=== PATIENT | female | born 1940 | race African-American/Black ===

== ENCOUNTER 2019-12-30 13:29 | Emergency (ER) | payer MEDICARE, OTHER ==
[~2019-12-30] VITALS: Ht 152.4 cm; Wt 54.5 kg
--- NOTE | 2019-12-30 14:49 | RAD ---
CT head without contrast: Reason for examination: Fell with head and neck pain. Axial images were obtained through the brain. No contrast was administered. Ventricular systems are dilated but symmetric and consistent with patient's advanced age and generalized cerebral atrophy. No midline shift is seen. There are patchy deep white matter microvascular ischemic changes in the frontal lobes. No acute hemorrhage, infarct, mass or edema is seen. There does appear to be some minimal basal ganglia calcification present. No abnormalities of seen at the orbits. The paranasal sinuses and mastoid air cells are clear. No acute skull abnormality is seen. IMPRESSION: Generalized cerebral atrophy with some microvascular ischemic changes. No acute intracranial abnormality evident. CT cervical spine without contrast: Helical images were obtained through the cervical spine from skull base through the thoracic apices with no contrast administered. Reconstruction was performed in sagittal and coronal planes. The C1 ring is intact. The odontoid process is intact and normally centered between the lateral masses of C1. Cervical vertebral bodies show a mild grade 1 anterolisthesis of C5 on C6 and a mild grade 1 retrolisthesis of C6 on C7. The remaining vertebral bodies are normally aligned. No acute fracture is seen. Posterior elements are intact. Note is made of some moderate degenerative changes between C5 and C7. Remaining intervertebral discs however fairly well-maintained. Prevertebral soft tissues are normal. IMPRESSION: Degenerative spondylosis especially at the C5-6 and C6-7 levels. No acute abnormality evident in the cervical spine. Exposure: One or more of the following individualized dose reduction techniques were utilized for this examination: 1. Automated exposure control 2. Adjustment of the mA and/or kV according to patient size 3. Use of iterative reconstruction technique. Electronically signed by: Maria Ines Pina MD (12/30/2019 2:46 PM) SOPHY
--- NOTE | 2019-12-30 15:01 | PHYS DOC ---
Past Medical History Past Medical History: CVA, Dementia, Hypertension, Seizure, Other Additional Past Medical Histor: COVID-19,ALZHEIMER'S,DYSPHAGIA,ENCEPHALOPATHY Past Surgical History: Other Additional Past Surgical Histo: UNKNOWN Smoking Status: Never Smoker Alcohol Use: None General Adult EDM: Chief Complaint: MECHANICAL FALL HPI: HPI: Patient is a 79 year old female who was brought here by EMS from the care home after she fell. It was reported that patient was walking and tripped fell down and hit her head on the ground. No loss of consciousness. EMS report that patient was ambulate at the scene without any problem. Patient denies any pelvic pain, no hip pain, no extremity pain. Patient complained of headache, neck pain, low back pain. Patient denies any upper back pain. Patient is not on any blood thinner. Review of Systems: Review of Systems: Constitutional: Denies fever or chills. [] Eyes: Denies change in visual acuity. [] HENT: Denies nasal congestion or sore throat. [] Respiratory: Denies cough or shortness of breath. [] Cardiovascular: Denies chest pain or edema. [] GI: Denies abdominal pain, nausea, vomiting, bloody stools or diarrhea. [] : Denies dysuria. [] Musculoskeletal: Positive for neck pain, low back pain Integument: Denies rash. [] Neurologic: Positive headache, no focal weakness or numbness. Endocrine: Denies polyuria or polydipsia. [] Lymphatic: Denies swollen glands. [] Psychiatric: Denies depression or anxiety. [] Heart Score: Risk Factors: Risk Factors: DM, Current or recent (<one month) smoker, HTN, HLP, family history of CAD, obesity. Risk Scores: Score 0 - 3: 2.5% MACE over next 6 weeks - Discharge Home Score 4 - 6: 20.3% MACE over next 6 weeks - Admit for Clinical Observation Score 7 - 10: 72.7% MACE over next 6 weeks - Early Invasive Strategies Allergies: Allergies: Allergies Coded Allergies Type Severity Reaction Last Updated Verified No Known Drug Allergies 12/30/19 No Physical Exam: PE: Constitutional: Well developed, well nourished, no acute distress, non-toxic appearance. [] HENT: Normocephalic, left temporal area contusion, there is no open wound, bilateral external ears normal, oropharynx moist, no oral exudates, nose normal. [] Eyes: PERRLA, EOMI, conjunctiva normal, no discharge. [] Neck: Normal range of motion, no tenderness, supple, no stridor. [] Cardiovascular:Heart rate regular rhythm, no murmur [] Lungs & Thorax: Bilateral breath sounds clear to auscultation [] Abdomen: Bowel sounds normal, soft, no tenderness, no masses, no pulsatile masses. [] Skin: Warm, dry, no erythema, no rash. [] Back: Thoracic kyphosis, no tender to palpation in thoracic area, paraspinal muscle tenderness to palpation in the lumbar area Extremities: No tenderness, no cyanosis, no clubbing, ROM intact, no edema. [] No pelvic or hip tenderness to palpation Neurologic: Alert and oriented X 3, normal motor function, normal sensory function, no focal deficits noted. [] Psychologic: Affect normal, judgement normal, mood normal. [] Current Patient Data: Vital Signs: Vital Signs Date Time Temp Pulse Resp B/P (MAP) Pulse Ox O2 Delivery O2 Flow Rate FiO2 12/30/19 13:29 97.4 82 20 110/73 (85) 95 Room Air 97.4 EKG: EKG: [] Radiology/Procedures: Radiology/Procedures: [facility] [address] [facility] [place] [address] IMAGING REPORT Signed PATIENT: KIN VALENCIA ACCOUNT: [id number] : 1940 LOCATION: ER AGE: 79 SEX: F EXAM STATUS: REG ER ORD. PHYSICIAN: ESDRAS ALVAREZ DO REASON: fell, head and neck pain PROCEDURE: CT HEAD AND CERVICAL SPINE WO CT head without contrast: Reason for examination: Fell with head and neck pain. Axial images were obtained through the brain. No contrast was administered. Ventricular systems are dilated but symmetric and consistent with patient's advanced age and generalized cerebral atrophy. No midline shift is seen. There are patchy deep white matter microvascular ischemic changes in the frontal lobes. No acute hemorrhage, infarct, mass or edema is seen. There does appear to be some minimal basal ganglia calcification present. No abnormalities of seen at the orbits. The paranasal sinuses and mastoid air cells are clear. No acute skull abnormality is seen. IMPRESSION: Generalized cerebral atrophy with some microvascular ischemic changes. No acute intracranial abnormality evident. CT cervical spine without contrast: Helical images were obtained through the cervical spine from skull base through the thoracic apices with no contrast administered. Reconstruction was performed in sagittal and coronal planes. The C1 ring is intact. The odontoid process is intact and normally centered between the lateral masses of C1. Cervical vertebral bodies show a mild grade 1 anterolisthesis of C5 on C6 and a mild grade 1 retrolisthesis of C6 on C7. The remaining vertebral bodies are normally aligned. No acute fracture is seen. Posterior elements are intact. Note is made of some moderate degenerative changes between C5 and C7. Remaining intervertebral discs however fairly well-maintained. Prevertebral soft tissues are normal. IMPRESSION: Degenerative spondylosis especially at the C5-6 and C6-7 levels. No acute abnormality evident in the cervical spine. Exposure: One or more of the following individualized dose reduction techniques were utilized for this examination: 1. Automated exposure control 2. Adjustment of the mA and/or kV according to patient size 3. Use of iterative reconstruction technique. Electronically signed by: Maria Ines David MD (12/30/2019 2:46 PM) [facility] DICTATED and SIGNED BY: MARIA INES DAVID MD DATE: 12/30/[address] [facility] [address] [place] [address] IMAGING REPORT Signed PATIENT: KIN VALENCIA ACCOUNT: [id number] : 1940 LOCATION: ER AGE: 79 SEX: F EXAM STATUS: REG ER ORD. PHYSICIAN: ESDRAS ALVAREZ DO REASON: LOWER BACK PAIN, FELL PROCEDURE: LUMBAR SPINE 2-3V Two-view lumbar spine dated 12/30/2019. No comparison available. Clinical data indication: Low back pain after fall. FINDINGS: 2 views lumbar spine show grade 1 anterolisthesis of L4 on L5. Sagittal alignment is otherwise anatomic. There are moderate compression deformities of T9 and T11 status post vertebroplasty. Vertebral body heights are otherwise maintained. Mild endplate hypertrophic changes throughout. Moderate arthrosis lower lumbar apophyseal joints. IMPRESSION: 1. No acute radiographic abnormality. Remote compression deformities of T9 and T11 status post vertebroplasty. 2. Mild multilevel spondylosis with grade 1 anterolisthesis of L4 on L5. Electronically signed by: Scotty Poole MD (12/30/2019 3:44 PM) [id number] DICTATED and SIGNED BY: SCOTTY POOLE MD DATE: 12/30/19 1544 Course & Med Decision Making: Course & Med Decision Making Pertinent Labs and Imaging studies reviewed. (See chart for details) [] Kayla Disclaimer: Kayla Disclaimer: This electronic medical record was generated, in whole or in part, using a voice recognition dictation system. Departure Departure Impression: Primary Impression: Head injury Additional Impression: Back pain Disposition: 03 DC/TRF TO SNF Condition: IMPROVED Referrals: NON,STAFF (PCP) FOLLOW UP WITH YOUR DOCTOR ON WEDNESDAY ESDRAS ALVAREZ DO Dec 30, 2019 15:01
--- NOTE | 2019-12-30 15:47 | RAD ---
Two-view lumbar spine dated 12/30/2019. No comparison available. Clinical data indication: Low back pain after fall. FINDINGS: 2 views lumbar spine show grade 1 anterolisthesis of L4 on L5. Sagittal alignment is otherwise anatomic. There are moderate compression deformities of T9 and T11 status post vertebroplasty. Vertebral body heights are otherwise maintained. Mild endplate hypertrophic changes throughout. Moderate arthrosis lower lumbar apophyseal joints. IMPRESSION: 1. No acute radiographic abnormality. Remote compression deformities of T9 and T11 status post vertebroplasty. 2. Mild multilevel spondylosis with grade 1 anterolisthesis of L4 on L5. Electronically signed by: Scotty Poole MD (12/30/2019 3:44 PM) [id number]
[2019-12-30 17:14] VITALS: BP 118/75
== END 2019-12-30 17:37 | disposition home or self-care (01) ==
LOC: ER 13:29
DX: S00.83XA Contusion of other part of head, initial encounter (principal); M54.5 Low back pain; M54.2 Cervicalgia; I10 Essential (primary) hypertension; G30.9 Alzheimer's disease, unspecified; F02.80 Dementia in other diseases classified elsewhere, unspecified severity, without behavioral disturbance, psychotic disturbance, mood disturbance, and anxiety; Z86.73 Personal history of transient ischemic attack (TIA), and cerebral infarction without residual deficits; W01.198A Fall on same level from slipping, tripping and stumbling with subsequent striking against other object, initial encounter; Y93.01 Activity, walking, marching and hiking; Y92.89 Other specified places as the place of occurrence of the external cause; Y99.8 Other external cause status
CPT/HCPCS: 70450; 72100; 72125; 99285

== ENCOUNTER 2020-09-14 13:37 | Observation (INO) | payer MEDICARE, OTHER ==
[~2020-09-14] VITALS: Ht 154.9 cm; Wt 49.5 kg
[2020-09-14] MEDS ORDERED: diphenhydrAMINE 50 MG/ML VIAL ONE (13:44)
[2020-09-14] MEDS ORDERED: methylPREDNISolone SOD SUCC PF 125 MG/2 ML VIAL. ONE (13:44)
[2020-09-14] MEDS ORDERED: FAMOTIDINE 20 MG/2 ML VIAL ONE (13:44)
[2020-09-14] MEDS ORDERED: methylPREDNISolone SOD SUCC PF 125 MG/2 ML VIAL. IV ONE (14:00)
[2020-09-14] MEDS ORDERED: diphenhydrAMINE 50 MG/ML VIAL IVP ONE (14:00)
[2020-09-14] MEDS ORDERED: FAMOTIDINE 20 MG/2 ML VIAL IVP ONE (14:00)
[2020-09-14] MEDS ORDERED: EPINEPHrine 1 MG/ML VIAL IM ONE (16:15)
--- NOTE | 2020-09-14 16:24 | PHYS DOC ---
Past Medical History Past Medical History: CVA, Dementia, Hypertension, Seizure, Other Additional Past Medical Histor: COVID-19,ALZHEIMER'S,DYSPHAGIA,ENCEPHALOPATHY Past Surgical History: Other Additional Past Surgical Histo: UNKNOWN Smoking Status: Never Smoker Alcohol Use: None General Adult EDM: Chief Complaint: TONGUE SWELLING/INJURY HPI: HPI: Patient is a 80 year old female who was brought here by EMS from senior living due to swelling of her tongue and her lip. Patient denies any chest pain, no abdominal pain, no nausea vomiting. Patient denies any trouble breathing. Per nursing report, patient was okay this morning, she went to eat breakfast when she came back from breakfast they noticed that her lower lip and her tongue was swollen. Patient had been on lisinopril 10 mg daily for hypertension for several years.. Patient had not taken her lisinopril for the last 2 days because her blood pressure was low. No report of any new medication. There is no rash or itching anywhere. Patient denies any trouble swallowing. Review of Systems: Review of Systems: Constitutional: Denies fever or chills. [] Eyes: Denies change in visual acuity. [] HENT: Denies nasal congestion or sore throat. Positive for lower lip swelling, tongue swelling. Respiratory: Denies cough or shortness of breath. [] Cardiovascular: Denies chest pain or edema. [] GI: Denies abdominal pain, nausea, vomiting, bloody stools or diarrhea. [] : Denies dysuria. [] Musculoskeletal: Denies back pain or joint pain. [] Integument: Denies rash. [] Neurologic: Denies headache, focal weakness or sensory changes. [] Endocrine: Denies polyuria or polydipsia. [] Lymphatic: Denies swollen glands. [] Psychiatric: Denies depression or anxiety. [] Heart Score: C/O Chest Pain: N/A Risk Factors: Risk Factors: DM, Current or recent (<one month) smoker, HTN, HLP, family history of CAD, obesity. Risk Scores: Score 0 - 3: 2.5% MACE over next 6 weeks - Discharge Home Score 4 - 6: 20.3% MACE over next 6 weeks - Admit for Clinical Observation Score 7 - 10: 72.7% MACE over next 6 weeks - Early Invasive Strategies Current Medications: Current Medications Medications (Trade) Dose Ordered Sig/Austyn Start Time Stop Time Status Last Admin Dose Admin Diphenhydramine HCl (Benadryl) 25 mg 1X ONCE 09/14/20 14:00 09/14/20 14:01 DC 09/14/20 13:49 25 MG Epinephrine HCl (Adrenalin) 0.3 mg 1X ONCE 09/14/20 16:15 09/14/20 16:16 DC Famotidine (Pepcid Vial) 20 mg 1X ONCE 09/14/20 14:00 09/14/20 14:01 DC 09/14/20 13:48 20 MG Methylprednisolone Sodium Succinate (SOLU-Medrol 125MG VIAL) 125 mg 1X ONCE 09/14/20 14:00 09/14/20 14:01 DC 09/14/20 13:48 125 MG Allergies: Allergies: Allergies Coded Allergies Type Severity Reaction Last Updated Verified No Known Drug Allergies 12/30/19 No Physical Exam: PE: Constitutional: Well developed, well nourished, no acute distress, non-toxic appearance. [] HENT: Normocephalic, atraumatic, bilateral external ears normal, oropharynx moist, no oral exudates, nose normal. Anterior part of her tongue is swollen, lower lip is swollen consistent with angioedema. Eyes: PERRLA, EOMI, conjunctiva normal, no discharge. [] Neck: Normal range of motion, no tenderness, supple, no stridor. [] Cardiovascular:Heart rate regular rhythm, no murmur [] Lungs & Thorax: Bilateral breath sounds clear to auscultation [] Abdomen: Bowel sounds normal, soft, no tenderness, no masses, no pulsatile masses. [] Skin: Warm, dry, no erythema, no rash. [] Back: No tenderness, no CVA tenderness. [] Extremities: No tenderness, no cyanosis, no clubbing, ROM intact, no edema. [] Neurologic: Alert and oriented X 3, normal motor function, normal sensory function, no focal deficits noted. [] Psychologic: Affect normal, judgement normal, mood normal. [] EKG: EKG: [] Radiology/Procedures: Radiology/Procedures: [] Course & Med Decision Making: Course & Med Decision Making Pertinent Labs and Imaging studies reviewed. (See chart for details) Patient is a 80-year-old female who presented to ER due to swelling of lower lip and anterior part of her tongue suspicious for allergic reaction. Patient has been on lisinopril for a long time. Patient was given Benadryl, Pepcid, Solu- Medrol and epinephrine in the ED, patient continued to have swelling to her lower lip and anterior part of her tongue, no respiratory distress, no trouble swallowing. Patient will be admitted to hospital for observation. Discussed with hospital on-call Dr. Mary Mitchell who agreed to admit the patient Dragon Disclaimer: Kayla Disclaimer: This electronic medical record was generated, in whole or in part, using a voice recognition dictation system. Departure Departure Impression: Primary Impression: Angio-edema Disposition: ADMITTED INPATIENT Admitting Physician: REBE[facility] (DR. MARY MITCHELL) Condition: IMPROVED Referrals: JONEL VANCE MD (PCP) ESDRAS ALVAREZ DO Sep 14, 2020 16:24
--- NOTE | 2020-09-14 17:55 | NUR ---
The patient, KIN VALENCIA, 80 y/o, F admitted by MARY MITCHELL MD, was given written information regarding hospital policies, unit procedures and contact persons. Valuables were checked and left at bedside with patient and daughter. Patient has dementia and unable to answer many questions. Is alert to self. Reviewed medical history and medications with daughter and Medical [place] paper work.
[2020-09-14 18:03] VITALS: BP 115/69
[2020-09-14] MEDS ORDERED: LISI10TA16 PO (18:46)
[2020-09-14] MEDS ORDERED: IBUP-1027 PO (18:46)
[2020-09-14] MEDS ORDERED: ACET325T9 PO (18:46)
[2020-09-14] MEDS ORDERED: KETO5DRO89 EACHEYE (18:46)
[2020-09-14] MEDS ORDERED: FERR325T14 PO (18:46)
[2020-09-14] MEDS ORDERED: LORA10TA3 PO (18:46)
[2020-09-14] MEDS ORDERED: MEMA10TA PO (18:46)
[2020-09-14] MEDS ORDERED: CYCL5TAB PO (18:46)
[2020-09-14] MEDS ORDERED: VALP250C2 PO (18:46)
[2020-09-14] MEDS ORDERED: MELA3TAB4 PO (18:46)
[2020-09-14 18:58] LABS: BASO % 0 % (0-3); EOS % 0 % (0-3); HEMATOCRIT 32.8 % (36.0-47.0); HEMOGLOBIN 10.9 g/dL (12.0-15.5); LYMPH # 0.4 x10^3/uL (1.0-4.8); LYMPH % 2 % (24-48); MEAN CORPUSCULAR HEMOGLOBIN 23 pg (25-35); MEAN CORPUSCULAR HGB CONC 33 g/dL (31-37); MEAN CORPUSCULAR VOLUME 69 fL (79-100); MONO # 0.2 x10^3/uL (0.0-1.1); MONO % 1 % (0-9); NEUT # 17.3 x10^3/uL (1.8-7.7); NEUT % 96 % (31-73); PLATELET COUNT 253 x10^3/uL (140-400); RED BLOOD COUNT 4.73 x10^6/uL (3.50-5.40); RED CELL DISTRIBUTION WIDTH 18.5 % (11.5-14.5); WHITE BLOOD COUNT 17.9 x10^3/uL (4.0-11.0)
[2020-09-14 19:04] LABS: CALCIUM 8.4 mg/dL (8.5-10.1); CREATININE 0.9 mg/dL (0.6-1.0); GFR 73.3; POTASSIUM 3.5 mmol/L (3.5-5.1)
[2020-09-14] MEDS ORDERED: diphenhydrAMINE 50 MG/ML VIAL IVP PRN (19:15)
[2020-09-14] MEDS ORDERED: ACETAMINOPHEN 325 MG TABLET. PO PRN (19:30)
[2020-09-14] MEDS ORDERED: IBUPROFEN 400 MG TABLET. PO PRN (19:30)
[2020-09-14 19:41] VITALS: BP 124/73
--- NOTE | 2020-09-14 19:48 | PDOC1 ---
History and Physical Date of Service: DOS: DATE: 09/14/20 TIME: 19:29 Chief Complaint: Problems: (1) Allergic reaction (2) Seizure disorder (3) Dementia (4) Angio-edema History of Present Illness: Reason for Visit: Concern for allergic reaction HPI: Patient is a 80-year-old -Cypriot female who presents today from her correction due to concern for allergic reaction. Apparently patient was starting to eat breakfast this morning and staff noticed her lower lip appeared to be a bit more swollen than usual. Breakfast progressed they also noticed that her tongue looked enlarged as well. The time she got back to her room her lips tongue and were both visibly swollen. She was taken to the emergency room because of this. In the ED she received Solu-Medrol, Benadryl, and epinephrine. No clear-cut cause was found for her acute reaction. She has been on lisinopril for years and recently had it stopped for 2 days due to low blood pressure and was restarted today. However she started having the reaction well before she got her dose of lisinopril. Past Medical/Surgical History: PMH/PSH: Hypertension, dementia, and seizure disorder, Allergies: Allergies: Coded Allergies: lisinopril (Verified Allergy, Severe, ANGIOEDEMA, 09/14/20) Family History: Family History: NA Social History: Social History: Patient lives in a correction; former smoker, does not drink or use drugs Current Medications: Current Medications Current Medications Diphenhydramine HCl (Benadryl) 50 mg STK-MED ONCE .ROUTE ; Start 09/14/20 at 13:44; Stop 09/14/20 at 13:44; Status DC Famotidine (Pepcid Vial) 20 mg STK-MED ONCE .ROUTE ; Start 09/14/20 at 13:44; Stop 09/14/20 at 13:44; Status DC Methylprednisolone Sodium Succinate (SOLU-Medrol 125MG VIAL) 125 mg STK-MED ONCE .ROUTE ; Start 09/14/20 at 13:44; Stop 09/14/20 at 13:44; Status DC Famotidine (Pepcid Vial) 20 mg 1X ONCE IVP Last administered on 09/14/20at 13:48; Start 09/14/20 at 14:00; Stop 09/14/20 at 14:01; Status DC Diphenhydramine HCl (Benadryl) 25 mg 1X ONCE IVP Last administered on 09/14/20at 13:49; Start 09/14/20 at 14:00; Stop 09/14/20 at 14:01; Status DC Methylprednisolone Sodium Succinate (SOLU-Medrol 125MG VIAL) 125 mg 1X ONCE IV Last administered on 09/14/20at 13:48; Start 09/14/20 at 14:00; Stop 09/14/20 at 14:01; Status DC Epinephrine HCl (Adrenalin) 0.3 mg 1X ONCE IM Last administered on 09/14/20at 16:34; Start 09/14/20 at 16:15; Stop 09/14/20 at 16:16; Status DC Methylprednisolone Sodium Succinate (SOLU-Medrol 125MG VIAL) 125 mg Q8HRS IV ; Start 09/14/20 at 22:00 Diphenhydramine HCl (Benadryl) 25 mg PRN Q6HRS PRN IVP ITCHING; Start 09/14/20 at 19:15 Famotidine (Pepcid Vial) 20 mg BID IVP ; Start 09/14/20 at 21:00 Acetaminophen (Tylenol) 325 mg PRN Q6HRS PRN PO PAIN; Start 09/14/20 at 19:30; Status UNV Ferrous Sulfate (Feosol) 325 mg DAILY PO ; Start 09/15/20 at 09:00; Status UNV Ibuprofen (Motrin) 400 mg PRN Q8HRS PRN PO INFLAMMATION; Start 09/14/20 at 19:30; Status UNV Ketotifen Fumarate (Zaditor) 1 drop BID OU ; Start 09/14/20 at 21:00; Status UNV Memantine (Namenda) 10 mg BID PO ; Start 09/14/20 at 21:00; Status UNV Valproic Acid (Depakene) 250 mg TID PO ; Start 09/14/20 at 21:00; Status UNV Non-Formulary Medication (Loratadine ) 10 mg DAILY PO ; Start 09/15/20 at 09:00; Status UNV Active Scripts Active Reported Valproic Acid 250 Mg Capsule 250 Mg PO TID Tylenol (Acetaminophen) 325 Mg Tablet 325 Mg PO PRN Q6HRS PRN Namenda (Memantine Hcl) 10 Mg Tablet 10 Mg PO BID Melatonin 3 Mg Tablet 6 Mg PO QHS Loratadine 10 Mg Tablet 10 Mg PO DAILY Lisinopril 10 Mg Tablet 10 Mg PO DAILY Ketotifen Fumarate 5 Ml Drops 1 Drop EACHEYE BID Ibuprofen 400 Mg Tablet 400 Mg PO PRN Q8HRS PRN Ferrous Sulfate 325 Mg Tablet 325 Mg PO DAILY Cyclobenzaprine Hcl 5 Mg Tablet 1 Tab PO PRN DAILY PRN ROS: Review of Systems Review of System Patient's dementia cannot obtain review of systems reliably Physical Exam: Vital Signs: Vital Signs Date Time Temp Pulse Resp B/P (MAP) Pulse Ox O2 Delivery O2 Flow Rate FiO2 09/14/20 18:03 100.4 103 18 115/69 (84) 95 Room Air 100.4 Physcial Exam: GEN: No apparent distress. Alert and oriented HEENT: Lower lip mildly swollen, tongue large, upper lip normal EYES: pupil are equally round and reactive to light and accommodation MUSCULOSKELETAL: Well developed , well nourished, good range of motion ENDOCRINE: No thyromegaly was palpated LYMPHATICS: No cervical chain or axillary nodes were noted HEMATOPOIETIC: No bruising NECK: Supple, no JVD, no thyromegaly was noted LUNGS: Clear to auscultation in all lung crouch without rhonchi or wheezing HEART: RRR, S!, S2 present. Peripheral pulses intact, no obvious murmurs noted ABDOMEN: Soft, nontender. Positive bowel sounds, no organomegaly, normal bowel sounds EXTREMITIES: Without clubbing, cyanosis, or edema. Pedal pulses intact. NEUROLOGIC: AAO x0 VASCULAR: Good capillary refill, neurovascular bundle appears to be intact Labs: Labs: Laboratory Tests Test 09/14/20 18:43 White Blood Count 17.9 x10^3/uL (4.0-11.0) Red Blood Count 4.73 x10^6/uL (3.50-5.40) Hemoglobin 10.9 g/dL (12.0-15.5) Hematocrit 32.8 % (36.0-47.0) Mean Corpuscular Volume 69 fL (79-100) Mean Corpuscular Hemoglobin 23 pg (25-35) Mean Corpuscular Hemoglobin Concent 33 g/dL (31-37) Red Cell Distribution Width 18.5 % (11.5-14.5) Platelet Count 253 x10^3/uL (140-400) Neutrophils (%) (Auto) 96 % (31-73) Lymphocytes (%) (Auto) 2 % (24-48) Monocytes (%) (Auto) 1 % (0-9) Eosinophils (%) (Auto) 0 % (0-3) Basophils (%) (Auto) 0 % (0-3) Neutrophils # (Auto) 17.3 x10^3/uL (1.8-7.7) Lymphocytes # (Auto) 0.4 x10^3/uL (1.0-4.8) Monocytes # (Auto) 0.2 x10^3/uL (0.0-1.1) Eosinophils # (Auto) 0.0 x10^3/uL (0.0-0.7) Basophils # (Auto) 0.0 x10^3/uL (0.0-0.2) Sodium Level 144 mmol/L (136-145) Potassium Level 3.5 mmol/L (3.5-5.1) Chloride Level 106 mmol/L (98-107) Carbon Dioxide Level 26 mmol/L (21-32) Anion Gap 12 (6-14) Blood Urea Nitrogen 13 mg/dL (7-20) Creatinine 0.9 mg/dL (0.6-1.0) Estimated GFR (Cockcroft-Gault) 73.3 Glucose Level 180 mg/dL (70-99) Lactic Acid Level 3.7 mmol/L (0.4-2.0) Calcium Level 8.4 mg/dL (8.5-10.1) Laboratory Tests Test 09/14/20 18:43 White Blood Count 17.9 x10^3/uL (4.0-11.0) Red Blood Count 4.73 x10^6/uL (3.50-5.40) Hemoglobin 10.9 g/dL (12.0-15.5) Hematocrit 32.8 % (36.0-47.0) Mean Corpuscular Volume 69 fL (79-100) Mean Corpuscular Hemoglobin 23 pg (25-35) Mean Corpuscular Hemoglobin Concent 33 g/dL (31-37) Red Cell Distribution Width 18.5 % (11.5-14.5) Platelet Count 253 x10^3/uL (140-400) Neutrophils (%) (Auto) 96 % (31-73) Lymphocytes (%) (Auto) 2 % (24-48) Monocytes (%) (Auto) 1 % (0-9) Eosinophils (%) (Auto) 0 % (0-3) Basophils (%) (Auto) 0 % (0-3) Neutrophils # (Auto) 17.3 x10^3/uL (1.8-7.7) Lymphocytes # (Auto) 0.4 x10^3/uL (1.0-4.8) Monocytes # (Auto) 0.2 x10^3/uL (0.0-1.1) Eosinophils # (Auto) 0.0 x10^3/uL (0.0-0.7) Basophils # (Auto) 0.0 x10^3/uL (0.0-0.2) Sodium Level 144 mmol/L (136-145) Potassium Level 3.5 mmol/L (3.5-5.1) Chloride Level 106 mmol/L (98-107) Carbon Dioxide Level 26 mmol/L (21-32) Anion Gap 12 (6-14) Blood Urea Nitrogen 13 mg/dL (7-20) Creatinine 0.9 mg/dL (0.6-1.0) Estimated GFR (Cockcroft-Gault) 73.3 Glucose Level 180 mg/dL (70-99) Lactic Acid Level 3.7 mmol/L (0.4-2.0) Calcium Level 8.4 mg/dL (8.5-10.1) Assessment/Plan Assessment/Plan Patient is a 80-year-old female presenting today due to concern for allergic reaction. Allergic reaction secondary to unknown cause versus allergic reaction secondary to lisinopril, angioedema, dementia, seizure disorder -On presentation to ER patient received Solu-Medrol, Benadryl and epinephrine and has had improvement in her symptoms -Leukocytosis and lactic acidosis on labs likely secondary to the reaction -We will continue Solu-Medrol and Benadryl for the night and reassess in the morning -Seems unlikely this allergic reaction was caused by lisinopril as she has been on it for several years and has not had it in the past 2 days; symptoms started before her dose was given today; either way we will hold lisinopril for now -Home meds resumed as indicated; Justifications for Admission Other Justification MARY MITCHELL MD Sep 14, 2020 19:48
[2020-09-14 20:28] LABS: % BANDS 1 % (0-9); % LYMPHS 5 % (24-48); % SEGS 94 % (35-66); PLT ESTIMATE ADEQUATE (ADEQUATE)
[2020-09-14 20:29] LABS: ANISOCYTOSIS SLIGHT; HYPOCHROMIA SLIGHT; MICROCYTOSIS MARKED; POLYCHROMASIA SLIGHT; TARGET CELLS FEW
[2020-09-14 20:30] LABS: SCHISTOCYTES FEW
[2020-09-14] MEDS: MEMANTINE 10 MG TABLET. PO SCH (21:00)
[2020-09-14] MEDS: VALPROIC ACID 250 MG CAPSULE. PO SCH (21:00)
[2020-09-14] MEDS ORDERED: NON FORMULARY ITEM (Melatonin 6 MG) PO SCH (21:00)
[2020-09-14 22:21] VITALS: BP 115/62
[2020-09-14] MEDS: methylPREDNISolone SOD SUCC PF 125 MG/2 ML VIAL. IV SCH (23:19)
[2020-09-14] MEDS: FAMOTIDINE 20 MG/2 ML VIAL IVP SCH (23:20)
[2020-09-14] MEDS: IV NORMAL SALINE 1000ML BAG 1,000 ML IV SCH (23:22)
[2020-09-14] MEDS: KETOTIFEN FUMARATE OPHTH SOLUTION BOTTLE. OU SCH (23:22)
[2020-09-15 03:53] VITALS: BP 121/70
[2020-09-15] MEDS: methylPREDNISolone SOD SUCC PF 125 MG/2 ML VIAL. IV SCH (06:39)
[2020-09-15 06:40] VITALS: BP 134/70
[2020-09-15] MEDS: IV NORMAL SALINE 1000ML BAG 1,000 ML IV SCH (08:11)
[2020-09-15] MEDS: FAMOTIDINE 20 MG/2 ML VIAL IVP SCH (08:11)
[2020-09-15] MEDS: MEMANTINE 10 MG TABLET. PO SCH (08:11)
[2020-09-15] MEDS: VALPROIC ACID 250 MG CAPSULE. PO SCH ×2 (08:11→13:49)
[2020-09-15] MEDS: KETOTIFEN FUMARATE OPHTH SOLUTION BOTTLE. OU SCH (08:11)
[2020-09-15] MEDS ORDERED: CETIRIZINE HCL 10 MG TABLET. PO SCH (09:00)
[2020-09-15] MEDS ORDERED: FERROUS SULFATE 325 MG TABLET. PO SCH (09:00)
[2020-09-15 09:13] LABS: BASO % 0 % (0-3); EOS % 0 % (0-3); HEMOGLOBIN 10.8 g/dL (12.0-15.5); LYMPH # 1.4 x10^3/uL (1.0-4.8); LYMPH % 9 % (24-48); MEAN CORPUSCULAR HEMOGLOBIN 23 pg (25-35); MEAN CORPUSCULAR HGB CONC 35 g/dL (31-37); MEAN CORPUSCULAR VOLUME 67 fL (79-100); MONO # 0.3 x10^3/uL (0.0-1.1); MONO % 2 % (0-9); NEUT # 13.4 x10^3/uL (1.8-7.7); NEUT % 89 % (31-73); PLATELET COUNT 276 x10^3/uL (140-400); RED BLOOD COUNT 4.62 x10^6/uL (3.50-5.40); RED CELL DISTRIBUTION WIDTH 18.5 % (11.5-14.5); WHITE BLOOD COUNT 15.1 x10^3/uL (4.0-11.0)
[2020-09-15] MEDS ORDERED: PRED20TA PO (09:55)
[2020-09-15] MEDS ORDERED: DIPH25CA58 PO (09:56)
[2020-09-15 09:59] LABS: ALBUMIN 3.7 g/dL (3.4-5.0); ALBUMIN/GLOBULIN RATIO 0.9 (1.0-1.7); CALCIUM 8.4 mg/dL (8.5-10.1); CREATININE 0.8 mg/dL (0.6-1.0); GFR 83.9; POTASSIUM 3.7 mmol/L (3.5-5.1); TOTAL BILIRUBIN 0.8 mg/dL (0.2-1.0); TOTAL PROTEIN 7.8 g/dL (6.4-8.2)
--- NOTE | 2020-09-15 10:06 | PDOC3 ---
[facility]-Dis[facility] Summary Date of Admission: Date of Admission: Sep 14, 2020 Date of Discharge: Date of Discharge: Sep 15, 2020 Admission Diagnosis: Admitting Diagnosis: angioedema, allergic reaction Discharge Diagnosis: Discharge Diagnosis: angioedema cause by Lisinopril Hospital Course: Hospital Course: HPI from admission Patient is a 80-year-old -[place] female who presents today from her longterm due to concern for allergic reaction. Apparently patient was starting to eat breakfast this morning and staff noticed her lower lip appeared to be a bit more swollen than usual. Breakfast progressed they also noticed that her tongue looked enlarged as well. The time she got back to her room her lips tongue and were both visibly swollen. She was taken to the emergency room because of this. In the ED she received Solu-Medrol, Benadryl, and epinephrine. No clear-cut cause was found for her acute reaction. She has been on lisinopril for years and recently had it stopped for 2 days due to low blood pressure and was restarted today. However she started having the reaction well before she got her dose of lisinopril Patient's condition improved notably with Solu-Medrol and Benadryl. By the day after admission her swelling was much less and she was breathing without any laboring. Planning on a 5-day course of prednisone burst and as needed Benadryl on discharge. After work-up it seems like her reaction is most likely due to an acquired angioedema secondary to lisinopril use. Advised that she stop taking lisinopril and any an PADDY inhibitor for that matter and consider switching to an ARB. Disposition: Disposition/Orders: D/C to Another Facility (long-term) Activity: Activity: Resume previous activity Diet: Diet: Regular Medications: Home Meds Reported Medications Valproic Acid (VALPROIC ACID) 250 Mg Capsule, 250 MG PO TID for , CAP 09/14/20 Acetaminophen (TYLENOL) 325 Mg Tablet, 325 MG PO PRN Q6HRS PRN for PAIN, TAB 09/14/20 Memantine Hcl (NAMENDA) 10 Mg Tablet, 10 MG PO BID for DEMENTIA, TAB 09/14/20 Melatonin (MELATONIN) 3 Mg Tablet, 6 MG PO QHS for , TAB 09/14/20 Loratadine (LORATADINE) 10 Mg Tablet, 10 MG PO DAILY for , TAB 09/14/20 Lisinopril (LISINOPRIL) 10 Mg Tablet, 10 MG PO DAILY for FOR HYPERTENSION, #30 TAB 0 Refills 09/14/20 Ketotifen Fumarate (KETOTIFEN FUMARATE) 5 Ml Drops, 1 DROP EACHEYE BID for , #5 ML 0 Refills 09/14/20 Ibuprofen (IBUPROFEN) 400 Mg Tablet, 400 MG PO PRN Q8HRS PRN for INFLAMMATION, TAB 09/14/20 Ferrous Sulfate (FERROUS SULFATE) 325 Mg Tablet, 325 MG PO DAILY for ANEMIA, TAB 09/14/20 Cyclobenzaprine Hcl (CYCLOBENZAPRINE HCL) 5 Mg Tablet, 1 TAB PO PRN DAILY PRN for MUSCLE SPASTICITY, #30 TAB 09/14/20 Scheduled Ferrous Sulfate (Ferrous Sulfate), 325 MG PO DAILY, (Reported) Ketotifen Fumarate (Ketotifen Fumarate), 1 DROP EACHEYE BID, (Reported) Lisinopril (Lisinopril), 10 MG PO DAILY, (Reported) Loratadine (Loratadine), 10 MG PO DAILY, (Reported) Melatonin (Melatonin), 6 MG PO QHS, (Reported) Memantine Hcl (Namenda), 10 MG PO BID, (Reported) Valproic Acid (Valproic Acid), 250 MG PO TID, (Reported) Scheduled PRN Acetaminophen (Tylenol), 325 MG PO PRN Q6HRS PRN for PAIN, (Reported) Cyclobenzaprine Hcl (Cyclobenzaprine Hcl), 1 TAB PO PRN DAILY PRN for MUSCLE SPASTICITY, (Reported) Ibuprofen (Ibuprofen), 400 MG PO PRN Q8HRS PRN for INFLAMMATION, (Reported) Justicifation of Admission Dx: Justifications for Admission: Justification of Admission Dx: Comment: (angioedema) MARY MITCHELL MD Sep 15, 2020 10:06
--- NOTE | 2020-09-15 10:38 | SNU/HH DC ---
DISCHARGE ORDERS DISCHARGE INFORMATION: DISCHARGE DATE: Sep 15, 2020 FINAL DIAGNOSIS Problems Medical Problems: (1) Angio-edema Status: Acute CONDITION ON DISCHARGE: Stable CODE STATUS: Code Status: Full HOSPICE: HOSPICE: No HOSPICE EVAL & TREAT: No LTAC: ADMIT TO LTAC: No POST DISCHARGE ORDERS: ACTIVITY ORDERS: Resume previous activity, Activity as tolerated WEIGHT BEARING STATUS: As tolerated BATHING ORDERS: Shower-keep dressing dry DIET AFTER DISCHARGE: Regular WOUND/INCISION CARE: No wound care needed CHECKS AFTER DISCHARGE: CHECKS AFTER DISCHARGE: Check blood press - daily, Check your Temp as needed FOLLOW-UP: Additional Instructions: Patient is to resume previous care that was provided at her intermediate. TREATMENT/EQUIPMENT ORDERS: ADAPTIVE EQUIPMENT NEEDED: None DISCHARGE MEDICATIONS: Home Meds Active Scripts Diphenhydramine Hcl (BENADRYL) 25 Mg Capsule, 25 MG PO Q6-8HRS PRN for ITCHING for 60 Days, #60 CAP Prov:MARY MITCHELL MD 09/15/20 Prednisone (PREDNISONE) 20 Mg Tablet, 2 TAB PO DAILY for angioedema for 5 Days, #10 TAB 0 Refills Prov:MARY MITCHELL MD 09/15/20 Reported Medications Valproic Acid (VALPROIC ACID) 250 Mg Capsule, 250 MG PO TID for , CAP 09/14/20 Acetaminophen (TYLENOL) 325 Mg Tablet, 325 MG PO PRN Q6HRS PRN for PAIN, TAB 09/14/20 Memantine Hcl (NAMENDA) 10 Mg Tablet, 10 MG PO BID for DEMENTIA, TAB 09/14/20 Melatonin (MELATONIN) 3 Mg Tablet, 6 MG PO QHS for , TAB 09/14/20 Loratadine (LORATADINE) 10 Mg Tablet, 10 MG PO DAILY for , TAB 09/14/20 Ketotifen Fumarate (KETOTIFEN FUMARATE) 5 Ml Drops, 1 DROP EACHEYE BID for , #5 ML 0 Refills 09/14/20 Ibuprofen (IBUPROFEN) 400 Mg Tablet, 400 MG PO PRN Q8HRS PRN for INFLAMMATION, TAB 09/14/20 Ferrous Sulfate (FERROUS SULFATE) 325 Mg Tablet, 325 MG PO DAILY for ANEMIA, TAB 09/14/20 Cyclobenzaprine Hcl (CYCLOBENZAPRINE HCL) 5 Mg Tablet, 1 TAB PO PRN DAILY PRN for MUSCLE SPASTICITY, #30 TAB 09/14/20 Discontinued Reported Medications Lisinopril (LISINOPRIL) 10 Mg Tablet, 10 MG PO DAILY for FOR HYPERTENSION, #30 TAB 0 Refills 09/14/20 MARY MITCHELL MD Sep 15, 2020 10:38
--- NOTE | 2020-09-15 10:58 | RAD ---
Exam Date: 09/14/2020 7:07 PM XR CHEST 1V Indication: Reason: ANGIOEDEMA / Spl. Instructions: / History: . FINDINGS/ IMPRESSION: The patient's chin obscures the left lung apex. The cardiac silhouette and pulmonary vasculature are within normal limits. There is no focal consolidation, pleural effusion or pneumothorax. Electronically signed by: Blaise Frazier MD (09/15/2020 10:55 AM) [facility]
[2020-09-15 11:00] VITALS: BP 123/75
--- NOTE | 2020-09-15 14:16 | NUR ---
Discharge Note: KIN VALENCIA Discharge instructions and discharge home medications reviewed with Other facility and a copy given. All questions have been answered and understanding verbalized. The following instructions and handouts were given: Discharge instructions and medication list. Discontinued lines and drains: Iv removed. Patient discharged [facility] [place] via express. Report given to KRISHNA Esposito.
== END 2020-09-15 14:00 ==
LOC: ER 13:37 → 2 NORTH 16:15 → INTOOBSV 16:15
PROVIDERS: ADMIT Student in an Organized Health Care Education/Training Program; ATTEND Student in an Organized Health Care Education/Training Program
DX: T78.3XXA Angioneurotic edema, initial encounter (principal); G40.909 Epilepsy, unspecified, not intractable, without status epilepticus; F03.90 Unspecified dementia, unspecified severity, without behavioral disturbance, psychotic disturbance, mood disturbance, and anxiety; I10 Essential (primary) hypertension; D72.829 Elevated white blood cell count, unspecified; E87.2 Acidosis; F02.80 Dementia in other diseases classified elsewhere, unspecified severity, without behavioral disturbance, psychotic disturbance, mood disturbance, and anxiety; T46.4X5A Adverse effect of angiotensin-converting-enzyme inhibitors, initial encounter; Z86.73 Personal history of transient ischemic attack (TIA), and cerebral infarction without residual deficits; Z87.891 Personal history of nicotine dependence
CPT/HCPCS: 36415; 71045; 80048; 80053; 83605; 85007; 85025; 96361; 96372; 96374; 96375; 96376; 99284; G0378; J0171; J1200; J2930; J3490; J7030; G0379